=== PATIENT | female | born 1980 | race Caucasian/White ===

== ENCOUNTER 2024-03-18 11:15 | Outpatient (RCR) | payer OTHER ==
[~2024-03-18 11:15] MED LIST: NAPROSYN500 MG PO; PRENATAL1 TA1 PO
== END 2024-03-28 ==
LOC: WSOT
DX: M77.12 Lateral epicondylitis, left elbow (principal); R20.9 Unspecified disturbances of skin sensation; M70.832 Other soft tissue disorders related to use, overuse and pressure, left forearm

== ENCOUNTER 2024-03-30 13:02 | Outpatient (RCR) | payer OTHER | END 2024-04-28 | disposition home or self-care (01) | LOC: WSOT | DX: M77.12 Lateral epicondylitis, left elbow (principal); R20.9 Unspecified disturbances of skin sensation; M70.832 Other soft tissue disorders related to use, overuse and pressure, left forearm ==

== ENCOUNTER 2024-05-14 14:30 | Outpatient (RCR) | payer OTHER | END 2024-05-29 | disposition home or self-care (01) | LOC: WSOT | DX: M77.12 Lateral epicondylitis, left elbow (principal); M70.832 Other soft tissue disorders related to use, overuse and pressure, left forearm; R20.9 Unspecified disturbances of skin sensation ==